=== PATIENT | male | born 1940 | race Hispanic/Latino ===

== ENCOUNTER 2017-11-16 12:55 | Inpatient (IN) | payer MEDICARE ==
[~2017-11-16] VITALS: Ht 165.1 cm; Wt 81.6 kg
[~2017-11-16 12:55] MED LIST: ASPI-555 PO; RANI300T4 PO; SERT50TA12 PO
[2017-11-16 13:39] LABS: BASOPHILS % (AUTO) 0.6 % (0.0-5.0); EOSINOPHILS % (AUTO) 2.8 % (0.0-8.0); HEMATOCRIT 37.1 % (42-54); LYMPHOCYTES % (AUTO) 16.5 % (21.0-51.0); MEAN CORPUSCULAR HEMOGLOBIN 30.2 pg (27.0-33.0); MEAN CORPUSCULAR HGB CONC 35.3 g/dL (32.0-36.0); MEAN CORPUSCULAR VOLUME 85.6 fL (79-99); MONOCYTES % (AUTO) 5.8 % (3.0-13.0); NEUTROPHILS % (AUTO) 74.3 % (40.0-77.0); NUCLEATED RED BLOOD CELLS 0.1 % (0.0-0.19); PLATELET COUNT (AUTO) 236 K/uL (130-400); RED BLOOD CELL COUNT(AUTO) 4.33 MIL/uL (4.50-6.20); RED CELL DISTRIBUTION WIDTH 14.8 % (11.0-15.5); WHITE BLOOD COUNT (AUTO) 7.7 K/uL (4.8-10.8)
[2017-11-16 13:47] LABS: CREATININE 3.8 mg/dL (0.5-1.5); POTASSIUM 4.1 mmol/L (3.5-5.1)
[2017-11-16 13:52] LABS: ALBUMIN 1.8 g/dL (3.5-5.0); BILIRUBIN,TOTAL 0.3 mg/dL (0.2-1.0); TOTAL PROTEIN, SERUM 5.5 g/dL (6.0-8.3)
[2017-11-16 14:54] LABS: APPEARANCE,URINE Clear (CLEAR); BILIRUBIN,URINE Negative (NEGATIVE); COLOR,URINE Yellow (YELLOW); GLUCOSE, URINE (UA) 500 mg/dL (NEGATIVE); KETONES,URINE Negative (NEGATIVE); LEUKOCYTE ESTERASE ,URINE Negative (NEGATIVE); NITRATE,URINE Negative (NEGATIVE); OCCULT BLOOD,URINE Trace (NEGATIVE); PROTEIN,URINE >=1000 (NEGATIVE); UROBILINOGEN,URINE 0.2 mg/dL (0.2-1.0)
[2017-11-16 15:06] LABS: BACTERIA,URINE Rare /HPF (None Seen); RBC,URINE 0-1 /HPF (0-1); SQUAMOUS EPITHELIAL CELL,UR Rare /LPF (0-2); WBC,URINE 0-1 /HPF (0-1)
[2017-11-16] MEDS ORDERED: MORPHINE SULFATE 4 MG/1ML SYG ONE (15:40)
[2017-11-16] MEDS ORDERED: SODIUM CHLORIDE 0.9% 1000ML 1,000 ML IV ONE ×2 (15:40→18:01)
[2017-11-16] MEDS ORDERED: ONDANSETRON HCL 4 MG/2 ML VIAL ONE (15:40)
[2017-11-16] MEDS ORDERED: HYDRALAZINE HCL 20 MG/ML VIAL ONE (15:40)
[2017-11-16] MEDS ORDERED: CEFTRIAXONE SODIUM 1 GM ONE (18:02)
[2017-11-16] MEDS ORDERED: TAMSULOSIN HCL 0.4 MG CAP.ER.24H ONE (18:02)
[2017-11-16] MEDS ORDERED: SODIUM CHLORIDE 0.9% 100 ML IV ONE (18:02)
[2017-11-16 20:06] VITALS: BP 147/77
[2017-11-16] MEDS ORDERED: NITR100C PO (20:31)
[2017-11-16] MEDS ORDERED: PRAV10TA39 PO (20:31)
[2017-11-16] MEDS ORDERED: METO50TA18 PO (20:31)
[2017-11-16] MEDS ORDERED: ACET-66 PO (20:31)
[2017-11-16] MEDS ORDERED: METF850T2 PO (20:36)
[2017-11-16] MEDS ORDERED: [UNRECOGNIZED DRUG - OTHER] PO (20:36)
[2017-11-16] MEDS ORDERED: TAMS0.4C32 PO (20:36)
[2017-11-16] MEDS ORDERED: NPH,100V SQ (20:39)
[2017-11-16] MEDS: SODIUM CHLORIDE 0.9% 1000ML 1,000 ML IV SCH (20:41)
[2017-11-16] MEDS: MORPHINE SULFATE 4 MG/1ML SYG IVP PRN (21:26)
[2017-11-17] VITALS (7 sets, daily range): BP systolic 128–166; BP diastolic 60–88
[2017-11-17] MEDS: TAMSULOSIN HCL 0.4 MG CAP.ER.24H PO SCH ×2 (08:51→20:34)
[2017-11-17] MEDS: ACETAMINOPHEN EXTRA STRENGTH 500 MG TABLET PO SCH ×2 (09:18→20:34)
[2017-11-17 09:45] LABS: BASOPHILS % (AUTO) 0.5 % (0.0-5.0); EOSINOPHILS % (AUTO) 4.1 % (0.0-8.0); HEMATOCRIT 36.8 % (42-54); LYMPHOCYTES % (AUTO) 17.7 % (21.0-51.0); MEAN CORPUSCULAR HEMOGLOBIN 29.1 pg (27.0-33.0); MEAN CORPUSCULAR HGB CONC 33.9 g/dL (32.0-36.0); MEAN CORPUSCULAR VOLUME 85.8 fL (79-99); MONOCYTES % (AUTO) 6.2 % (3.0-13.0); NEUTROPHILS % (AUTO) 71.5 % (40.0-77.0); PLATELET COUNT (AUTO) 230 K/uL (130-400); RED BLOOD CELL COUNT(AUTO) 4.28 MIL/uL (4.50-6.20); RED CELL DISTRIBUTION WIDTH 14.7 % (11.0-15.5)
[2017-11-17 09:56] LABS: ALBUMIN 1.7 g/dL (3.5-5.0); BILIRUBIN,TOTAL 0.2 mg/dL (0.2-1.0); CREATININE 3.8 mg/dL (0.5-1.5); POTASSIUM 4.1 mmol/L (3.5-5.1); TOTAL PROTEIN, SERUM 5.2 g/dL (6.0-8.3)
[2017-11-17] MEDS: SODIUM CHLORIDE 0.9% 1000ML 1,000 ML IV SCH (14:49)
[2017-11-17] MEDS: MORPHINE SULFATE 4 MG/1ML SYG IVP PRN (14:54)
[2017-11-17] MEDS: INSULIN NPH 100 UNIT/ML 3ML SQ SCH (16:30)
[2017-11-17] MEDS: METOPROLOL TARTRATE 50 MG TAB PO SCH (17:46)
[2017-11-17] MEDS: CEFTRIAXONE SODIUM 1 GM IVP SCH (17:46)
[2017-11-17] MEDS: ATORVASTATIN CALCIUM 20 MG TABLET PO SCH (20:35)
[2017-11-18] VITALS (23 sets, daily range): BP systolic 152–183; BP diastolic 67–96
[2017-11-18] MEDS: INSULIN NPH 100 UNIT/ML 3ML SQ SCH ×2 (06:20→16:30)
[2017-11-18] MEDS: SODIUM CHLORIDE 0.9% 1000ML 1,000 ML IV SCH ×2 (06:23→12:00)
[2017-11-18] MEDS: TAMSULOSIN HCL 0.4 MG CAP.ER.24H PO SCH ×2 (08:20→20:12)
[2017-11-18] MEDS: ASPIRIN 81 MG EC TAB PO SCH (08:21)
[2017-11-18] MEDS: ACETAMINOPHEN EXTRA STRENGTH 500 MG TABLET PO SCH ×2 (08:22→20:12)
[2017-11-18] MEDS: METOPROLOL TARTRATE 50 MG TAB PO SCH ×2 (08:22→16:45)
[2017-11-18] MEDS ORDERED: ISOVUE-370 50ML VIAL IV ONE (12:36)
[2017-11-18] MEDS ORDERED: ROCURONIUM BROMIDE 10MG/1ML 5ML VL ONE (12:41)
[2017-11-18] MEDS ORDERED: ONDANSETRON HCL 4 MG/2 ML VIAL ONE (12:41)
[2017-11-18] MEDS ORDERED: LIDOCAINE PF 2% 5ML ABBOJECT ONE (12:41)
[2017-11-18] MEDS ORDERED: PROPOFOL 10 MG/ML 20ML VIAL IV ONE ×2 (12:41→13:24)
[2017-11-18] MEDS ORDERED: FENTANYL CITRATE PF 50 MCG/1 ML 2ML VIAL ONE (12:42)
[2017-11-18] MEDS: CEFTRIAXONE SODIUM 1 GM IVP SCH (16:47)
[2017-11-18] MEDS ORDERED: HYDRALAZINE HCL 20 MG/ML VIAL IV PRN (19:45)
[2017-11-18] MEDS: ATORVASTATIN CALCIUM 20 MG TABLET PO SCH (20:11)
[2017-11-18] MEDS: MORPHINE SULFATE 4 MG/1ML SYG IVP PRN (21:20)
[2017-11-19 00:33] VITALS: BP 123/89
[2017-11-19] MEDS: SODIUM CHLORIDE 0.9% 1000ML 1,000 ML IV SCH ×2 (03:18→15:10)
[2017-11-19 04:05] VITALS: BP 146/74
[2017-11-19] MEDS ORDERED: BUPIVACAINE/PF 0.25% 30ML VIAL IJ ONE (06:38)
[2017-11-19] MEDS ORDERED: NEOMY SULF/POLYMYXIN B SULFATE 1 ML AMPUL IR ONE (06:38)
[2017-11-19] MEDS ORDERED: LIDOCAINE HCL 1% 20 ML VIAL ONE (06:38)
[2017-11-19] MEDS ORDERED: HEPARIN SODIUM 1000UNIT/ML 10ML VIAL ONE (06:38)
[2017-11-19] MEDS ORDERED: OCTYL 2-CYANOACRYLATE 1 EACH TP ONE (06:39)
[2017-11-19] MEDS: INSULIN NPH 100 UNIT/ML 3ML SQ SCH (06:40)
[2017-11-19 07:03] VITALS: BP 169/74
[2017-11-19] MEDS: ASPIRIN 81 MG EC TAB PO SCH (09:19)
[2017-11-19] MEDS: ACETAMINOPHEN EXTRA STRENGTH 500 MG TABLET PO SCH (09:19)
[2017-11-19] MEDS: TAMSULOSIN HCL 0.4 MG CAP.ER.24H PO SCH (09:19)
[2017-11-19] MEDS: METOPROLOL TARTRATE 50 MG TAB PO SCH (09:20)
[2017-11-19 12:00] VITALS: BP 145/76
[2017-11-19] MEDS ORDERED: CEFD300C3 PO (14:48)
== END 2017-11-19 17:05 | disposition home or self-care (01) | DRG 691 ==
LOC: EDH 12:55 → EDHIP 17:11 → 3AH 20:20
PROVIDERS: ADMIT Family Medicine; ATTEND Family Medicine
PROC: 0T778DZ Dilation of Left Ureter with Intraluminal Device, Via Natural or Artificial Opening Endoscopic (ICD-10-PCS; principal; 2017-11-19)
PROC: 0TF7XZZ Fragmentation in Left Ureter, External Approach (ICD-10-PCS; 2017-11-19)
PROC: BT1F1ZZ Fluoroscopy of Left Kidney, Ureter and Bladder using Low Osmolar Contrast (ICD-10-PCS; 2017-11-19)
DX: N13.2 Hydronephrosis with renal and ureteral calculous obstruction (principal); N17.9 Acute kidney failure, unspecified; N13.8 Other obstructive and reflux uropathy; E11.22 Type 2 diabetes mellitus with diabetic chronic kidney disease; E78.5 Hyperlipidemia, unspecified; N40.0 Benign prostatic hyperplasia without lower urinary tract symptoms; I12.9 Hypertensive chronic kidney disease with stage 1 through stage 4 chronic kidney disease, or unspecified chronic kidney disease; K21.9 Gastro-esophageal reflux disease without esophagitis; N18.9 Chronic kidney disease, unspecified; F32.9 Major depressive disorder, single episode, unspecified; Z28.21 Immunization not carried out because of patient refusal
CPT/HCPCS: 36415; 74018; 74176; 76000; 80053; 81001; 82948; 85025; 93005; A4218; A4354; C1758; C1769; C2617; J0360; J0696; J1644; J1815; J2001; J2270; J2405; J2704; J3010; J3490; J7030; Q9967

== ENCOUNTER 2018-02-05 13:03 | Inpatient (IN) | payer MEDICARE ==
[~2018-02-05] VITALS: Ht 165.1 cm; Wt 82.8 kg
[~2018-02-05 13:03] MED LIST changes: +ACET-66 PO; +CEFD300C3 PO; +METF850T2 PO; +METO50TA18 PO; +NPH,100V SQ; +PRAV10TA39 PO; -RANI300T4 PO; -SERT50TA12 PO; +TAMS0.4C32 PO
[2018-02-05] MEDS ORDERED: ASPIRIN 325 MG TABLET ONE (13:18)
[2018-02-05 13:45] LABS: BASOPHILS % (AUTO) 1.2 % (0.0-5.0); EOSINOPHILS % (AUTO) 4.3 % (0.0-8.0); HEMATOCRIT 39.8 % (42-54); LYMPHOCYTES % (AUTO) 28.1 % (21.0-51.0); MEAN CORPUSCULAR HEMOGLOBIN 29.6 pg (27.0-33.0); MEAN CORPUSCULAR HGB CONC 33.7 g/dL (32.0-36.0); MEAN CORPUSCULAR VOLUME 87.8 fL (79-99); MONOCYTES % (AUTO) 4.8 % (3.0-13.0); NEUTROPHILS % (AUTO) 61.6 % (40.0-77.0); PLATELET COUNT (AUTO) 234 K/uL (130-400); RED BLOOD CELL COUNT(AUTO) 4.54 MIL/uL (4.50-6.20); RED CELL DISTRIBUTION WIDTH 15.2 % (11.0-15.5); WHITE BLOOD COUNT (AUTO) 7.4 K/uL (4.8-10.8)
[2018-02-05 14:00] LABS: CREATININE 2.4 mg/dL (0.5-1.5); POTASSIUM 3.9 mmol/L (3.5-5.1)
[2018-02-05 14:01] LABS: INR 0.89 (0.85-1.15); PROTHROMBIN TIME 9.4 SEC (9.6-11.6)
[2018-02-05 14:06] LABS: APPEARANCE,URINE Clear (CLEAR); BILIRUBIN,URINE Negative (NEGATIVE); COLOR,URINE Yellow (YELLOW); GLUCOSE, URINE (UA) >=1000 mg/dL (NEGATIVE); KETONES,URINE Negative (NEGATIVE); LEUKOCYTE ESTERASE ,URINE Negative (NEGATIVE); NITRATE,URINE Negative (NEGATIVE); OCCULT BLOOD,URINE Negative (NEGATIVE); PH,URINE 6.5 (5.0-8.0); PROTEIN,URINE >=1000 (NEGATIVE); UROBILINOGEN,URINE 0.2 mg/dL (0.2-1.0)
[2018-02-05 14:13] LABS: ALBUMIN 1.5 g/dL (3.5-5.0); BILIRUBIN,TOTAL 0.2 mg/dL (0.2-1.0); CREATINE KINASE MB 1.7 ng/mL (0.5-3.6); TOTAL PROTEIN, SERUM 5.2 g/dL (6.0-8.3)
[2018-02-05 14:18] LABS: BACTERIA,URINE None Seen /HPF (None Seen); RBC,URINE None Seen /HPF (0-1); SQUAMOUS EPITHELIAL CELL,UR 0-2 /HPF (0-2); WBC,URINE None Seen /HPF (0-1)
[2018-02-05 20:46] VITALS: BP 155/77
[2018-02-05] MEDS: HEPARIN SODIUM 5000UNIT/ML 1ML VIAL SQ SCH (22:00)
[2018-02-05] MEDS ORDERED: LIDOCAINE HCL-MPF 1% 2ML VIAL IVP PRN (22:00)
[2018-02-05] MEDS ORDERED: POTASSIUM CHLORIDE 10% ELIXIR 20 MEQ/15 ML UDCUP PO PRN (22:00)
[2018-02-05] MEDS ORDERED: POTASSIUM CHLORIDE 20MEQ/100ML 100 ML IV PRN (22:00)
[2018-02-05] MEDS ORDERED: MORPHINE SULFATE 2 MG/ML 1ML SYG IVP PRN (22:00)
[2018-02-05] MEDS ORDERED: GLUCAGON 1MG KIT 1 MG ML IM PRN (22:00)
[2018-02-05] MEDS ORDERED: ONDANSETRON HCL MDV 20ML 2 MG/ML VIAL IVP PRN (22:00)
[2018-02-05] MEDS ORDERED: DEXTROSE 50%-WATER 50 ML DISP.SYRIN IV PRN (22:00)
[2018-02-05] MEDS: FAMOTIDINE 20MG TAB 20 MG TAB PO SCH (22:00)
[2018-02-05 23:00] VITALS: BP 145/76
[2018-02-06] VITALS (7 sets, daily range): BP systolic 114–192; BP diastolic 60–95
[2018-02-06 06:20] LABS: HEMATOCRIT 35.8 % (42-54); MEAN CORPUSCULAR HEMOGLOBIN 29.8 pg (27.0-33.0); MEAN CORPUSCULAR HGB CONC 34.2 g/dL (32.0-36.0); MEAN CORPUSCULAR VOLUME 87.1 fL (79-99); PLATELET COUNT (AUTO) 235 K/uL (130-400); RED BLOOD CELL COUNT(AUTO) 4.11 MIL/uL (4.50-6.20); RED CELL DISTRIBUTION WIDTH 15.4 % (11.0-15.5); WHITE BLOOD COUNT (AUTO) 7.7 K/uL (4.8-10.8)
[2018-02-06 06:40] LABS: ALBUMIN 1.2 g/dL (3.5-5.0); BILIRUBIN,TOTAL 0.2 mg/dL (0.2-1.0); CREATININE 2.2 mg/dL (0.5-1.5); TOTAL PROTEIN, SERUM 4.4 g/dL (6.0-8.3)
[2018-02-06 06:43] LABS: HEMOGLOBIN A1C 8.6 % (4.0-6.0)
[2018-02-06] MEDS: INSULIN R PO SS2 SQ SCH ×4 (06:50→21:00)
[2018-02-06] MEDS ORDERED: HYDRALAZINE HCL 20 MG/ML VIAL ONE (08:25)
[2018-02-06] MEDS ORDERED: HYDRALAZINE HCL 20 MG/ML VIAL IV PRN (08:30)
[2018-02-06] MEDS: HEPARIN SODIUM 5000UNIT/ML 1ML VIAL SQ SCH ×2 (09:38→21:26)
[2018-02-06] MEDS: FUROSEMIDE 10 MG/ML 4ML VIAL IV SCH ×2 (12:13→21:54)
[2018-02-06] MEDS: CLINIMIX E 4.25%-5% SOLUTION 2,000 ML IV SCH (13:51)
[2018-02-06 15:21] LABS: PROTEIN,URINE RANDOM 526.9 mg/dL (0-11.9)
[2018-02-06] MEDS: FAMOTIDINE 20MG TAB 20 MG TAB PO SCH (20:52)
[2018-02-07] VITALS (8 sets, daily range): BP systolic 128–169; BP diastolic 69–80
[2018-02-07 03:53] LABS: HEMATOCRIT 34.4 % (42-54); MEAN CORPUSCULAR HEMOGLOBIN 31.5 pg (27.0-33.0); MEAN CORPUSCULAR HGB CONC 36.4 g/dL (32.0-36.0); MEAN CORPUSCULAR VOLUME 86.7 fL (79-99); NUCLEATED RED BLOOD CELLS 0.1 % (0.0-0.19); PLATELET COUNT (AUTO) 216 K/uL (130-400); RED BLOOD CELL COUNT(AUTO) 3.97 MIL/uL (4.50-6.20); WHITE BLOOD COUNT (AUTO) 7.7 K/uL (4.8-10.8)
[2018-02-07 04:08] LABS: CREATININE 2.2 mg/dL (0.5-1.5); PHOSPHORUS 4.4 mg/dL (2.5-4.9); POTASSIUM 3.6 mmol/L (3.5-5.1)
[2018-02-07 04:26] LABS: EOSINOPHILS % (MANUAL) 4 % (1-6); LYMPHOCYTES % (MANUAL) 13 % (22-44); MAN.DIFF COMMENT-IMPRESSION MANUAL DIFFERENTIAL; MONOCYTES % (MANUAL) 5 % (2-9); PLATELET MORPHOLOGY COMMENT ADEQUATE; SEGMENTED NEUTROPHILS % 78 % (40-70)
[2018-02-07] MEDS: INSULIN R PO SS2 SQ SCH ×4 (06:06→21:55)
[2018-02-07] MEDS: FUROSEMIDE 10 MG/ML 4ML VIAL IV SCH ×2 (08:47→21:55)
[2018-02-07] MEDS: HEPARIN SODIUM 5000UNIT/ML 1ML VIAL SQ SCH ×2 (08:48→21:54)
[2018-02-07] MEDS: CLINIMIX E 4.25%-5% SOLUTION 2,000 ML IV SCH (09:00)
[2018-02-07] MEDS ORDERED: ASPIRIN 325MG EC TAB 325 MG TABLET.DR PO SCH (09:45)
[2018-02-07] MEDS ORDERED: CLOPIDOGREL BISULFATE 75 MG TAB PO SCH (09:45)
[2018-02-07] MEDS ORDERED: METOLAZONE 2.5 MG TABLET PO SCH (13:00)
[2018-02-07] MEDS: FAMOTIDINE 20MG TAB 20 MG TAB PO SCH (21:53)
[2018-02-07] MEDS: POTASSIUM CHLORIDE 20 MEQ ERTAB PO PRN (22:01)
[2018-02-08 04:27] LABS: BASOPHILS % (AUTO) 1.3 % (0.0-5.0); EOSINOPHILS % (AUTO) 5.7 % (0.0-8.0); HEMATOCRIT 33.6 % (42-54); LYMPHOCYTES % (AUTO) 33.4 % (21.0-51.0); MEAN CORPUSCULAR HEMOGLOBIN 30.4 pg (27.0-33.0); MEAN CORPUSCULAR HGB CONC 34.8 g/dL (32.0-36.0); MEAN CORPUSCULAR VOLUME 87.3 fL (79-99); MONOCYTES % (AUTO) 6.7 % (3.0-13.0); NEUTROPHILS % (AUTO) 52.9 % (40.0-77.0); NUCLEATED RED BLOOD CELLS 0.1 % (0.0-0.19); PLATELET COUNT (AUTO) 208 K/uL (130-400); RED BLOOD CELL COUNT(AUTO) 3.84 MIL/uL (4.50-6.20); RED CELL DISTRIBUTION WIDTH 15.1 % (11.0-15.5); WHITE BLOOD COUNT (AUTO) 6.9 K/uL (4.8-10.8)
[2018-02-08 04:37] LABS: CREATININE 2.4 mg/dL (0.5-1.5); POTASSIUM 3.1 mmol/L (3.5-5.1)
[2018-02-08 04:45] VITALS: BP 116/80
[2018-02-08] MEDS: INSULIN R PO SS2 SQ SCH ×2 (06:12→10:50)
[2018-02-08] MEDS: POTASSIUM CHLORIDE 20 MEQ ERTAB PO PRN ×2 (06:21→09:49)
[2018-02-08 07:00] VITALS: BP 144/77
[2018-02-08] MEDS ORDERED: CLOPIDOGREL BISULFATE 75 MG TAB PO SCH (09:00)
[2018-02-08] MEDS ORDERED: ASPIRIN 325MG EC TAB 325 MG TABLET.DR PO SCH (09:00)
[2018-02-08] MEDS: FUROSEMIDE 10 MG/ML 4ML VIAL IV SCH (09:41)
[2018-02-08] MEDS: HEPARIN SODIUM 5000UNIT/ML 1ML VIAL SQ SCH (09:44)
[2018-02-08 11:00] VITALS: BP 138/76
[2018-02-08] MEDS ORDERED: ATORVASTATIN CALCIUM 20 MG TABLET PO SCH (21:00)
== END 2018-02-08 13:59 | DRG 65 ==
LOC: EDH 13:03 → EDHIP 18:15 → 3BH 20:43 → 2AH 02-06 15:20
PROVIDERS: ADMIT Internal Medicine Nephrology; ATTEND Internal Medicine Nephrology
DX: I63.9 Cerebral infarction, unspecified (principal); N17.9 Acute kidney failure, unspecified; E11.21 Type 2 diabetes mellitus with diabetic nephropathy; E87.70 Fluid overload, unspecified; N18.4 Chronic kidney disease, stage 4 (severe); E11.22 Type 2 diabetes mellitus with diabetic chronic kidney disease; E78.00 Pure hypercholesterolemia, unspecified; E78.5 Hyperlipidemia, unspecified; I13.10 Hypertensive heart and chronic kidney disease without heart failure, with stage 1 through stage 4 chronic kidney disease, or unspecified chronic kidney disease; J44.9 Chronic obstructive pulmonary disease, unspecified; N20.0 Calculus of kidney; R47.02 Dysphasia; Z79.4 Long term (current) use of insulin; Z86.73 Personal history of transient ischemic attack (TIA), and cerebral infarction without residual deficits; Z87.442 Personal history of urinary calculi
CPT/HCPCS: 36415; 70450; 70544; 70551; 71045; 76770; 80048; 80053; 80061; 81001; 82550; 82553; 82570; 82948; 83036; 83880; 84100; 84156; 84484; 85025; 85027; 85610; 85730; 86334; 92610; 93005; 93306; 93880; 97039; 99291; J0360; J1644; J1815; J1940; J3490